=== PATIENT | male | born 1950 | race Caucasian/White ===

== ENCOUNTER 2023-06-04 10:08 | Day surgery (SDC) | payer OTHER, SELFPAY ==
--- NOTE | 2023-06-04 10:10 | W.PREOPHP ---
Assessment and Plan Assessment and plan (1) Nuclear age-related cataract, right eye: Status: Acute Assessment and plan: Assessment: Visually significant cataract of the right eye. Plan: Cataract extraction with lens implantation of the right eye. History of Present Illness History of Present Illness Chief Complaint: Progressive decreased vision, both eyes Narrative: The patient is a 72-year-old male with history of diminished visual acuity in both eyes at both distance and near. He notes difficulty reading fine print and also has significant glare issues at night. On examination he was noted to have bilateral nuclear cataracts with cortical cataract of the left eye as well. The option of cataract surgery was offered to the patient and he felt he was significantly symptomatic that he wished to proceed. Review of Systems All systems reviewed & are unremarkable except as noted in HPI and below PFSH All Active Problems Nuclear age-related cataract, right eye (Acute) Medical History Agent orange exposure SALCEDO (dyspnea on exertion) History of urinary retention HTN (hypertension) Tinnitus Surgical History (Updated 06/04/23 @ 10:53 by Zohra Timmons RN) H/O cervical spine surgery History of throat surgery Social History Smoking/Tobacco Use Status: Former Tobacco Use Quit Date: 10/04/03 Smoking risk assessment performed?: Yes Alcohol Intake: current Alcohol Intake frequency: holidays/special occasions only Drug use: Never Substance use type: does not use Housing: house Do you feel safe at home: Yes Do you feel safe in your relationship?: Yes Meds Allergies and Home Medications Allergies Allergy/AdvReac Type Severity Reaction Status Date / Time No Known Allergies Allergy Unverified 06/04/23 10:32 Home Medications Medication Instructions Recorded Confirmed Type albuterol sulfate 2.5 mg/0.5 mL 2.5 mg inhalation DIRECTED 06/02/23 06/03/23 History solution for nebulization albuterol sulfate 90 mcg/actuation 2 inh inhalation DIRECTED 06/02/23 06/04/23 History breath activated powder inhaler cholecalciferol (vitamin D3) 25 25 mcg PO DAILY 06/02/23 06/04/23 History mcg (1,000 unit) tablet (Vitamin D3) hydrochlorothiazide 12.5 mg tablet 12.5 mg PO DAILY 06/02/23 06/04/23 History lisinopril 20 mg tablet 20 mg PO DAILY 06/02/23 06/04/23 History mometasone-formoterol HFA 200 1 puff inhalation BID 06/02/23 06/04/23 History mcg-5 mcg/actuation aerosol inhaler (Dulera) tamsulosin 0.4 mg capsule 0.8 mg PO DAILY 06/02/23 06/04/23 History tiotropium 2.5 mcg-olodaterol 2.5 2 puff inhalation DAILY 06/02/23 06/04/23 History mcg/actuation mist for inhalation (Stiolto Respimat) carboxymethylcellulose sodium 0.5 1 drp ophthalmic (eye) DAILY 06/04/23 06/04/23 History % eye drops (Refresh Tears) Exam Eyes Other: Most recent ocular examination was significant for corrected visual acuity of 20/50 OD, 20/25 OS. Extraocular Joie is normal. Intraocular pressure is 15 OD, 14 OS. Slit-lamp examination reveals a dense brunescent nuclear cataract of the right eye. A more moderate nuclear cataract with cortical cataract is present in the left eye. Pupils dilate to 4.5 mm OU. Funduscopic examination reveals disc cupping of 0.4 OU with normal vessels, macula, peripheral retina and vitreous. Resp Auscultation: clear to auscultation bilaterally Cardio Rate: regular rate Rhythm: regular rhythm
[2023-06-04 10:36] VITALS: BP 141/75; PULSE 85; RESP 20; TEMP 36.6; O2SAT 91
[2023-06-04] MEDS: Tropicam./Phenyleph. (1/2.5%) 5 ML BTL OD ×3 (10:56→11:08)
--- NOTE | 2023-06-04 10:57 | W.ANESPRE ---
General Info Date of Service Date Performed: 06/04/23 Height: 5 ft 9 in Weight: 107.9 kg Body Mass Index (BMI): 35.1 Surgical Procedure: Operation Date: 06/04/23 12:10 Proposed Procedure Side Surgeon p Cataract Extraction with IOL Implant Right Joe Ritter MD Meds Allergies and Home Medications Allergies Allergy/AdvReac Type Severity Reaction Status Date / Time No Known Allergies Allergy Unverified 06/04/23 10:32 Home Medication Medication Instructions Recorded albuterol sulfate 2.5 mg/0.5 mL 2.5 mg inhalation DIRECTED 06/02/23 solution for nebulization albuterol sulfate 90 mcg/actuation 2 inh inhalation DIRECTED 06/02/23 breath activated powder inhaler cholecalciferol (vitamin D3) 25 25 mcg PO DAILY 06/02/23 mcg (1,000 unit) tablet (Vitamin D3) hydrochlorothiazide 12.5 mg tablet 12.5 mg PO DAILY 06/02/23 lisinopril 20 mg tablet 20 mg PO DAILY 06/02/23 mometasone-formoterol HFA 200 1 puff inhalation BID 06/02/23 mcg-5 mcg/actuation aerosol inhaler (Dulera) tamsulosin 0.4 mg capsule 0.8 mg PO DAILY 06/02/23 tiotropium 2.5 mcg-olodaterol 2.5 2 puff inhalation DAILY 06/02/23 mcg/actuation mist for inhalation (Stiolto Respimat) carboxymethylcellulose sodium 0.5 1 drp ophthalmic (eye) DAILY 06/04/23 % eye drops (Refresh Tears) Current Visit Medications: Current Medications Generic Name Dose Route Start Last Admin Trade Name Freq PRN Reason Stop Dose Admin Acetaminophen 1,000 mg 06/04/23 06:00 Acetaminophen 500 Mg Tab PO 07/04/23 05:59 Q4H PRN PRN Balanced Salt Solution 500 ml 06/04/23 06:00 Balanced Salt Soln.-Plus 500 Ml Bag OP 07/04/23 05:59 DIRECTED TRESSA Miscellaneous Medication 0 ml 06/04/23 06:00 Prednisolone 1%, Moxifloxacin 0.5%, Nepafenac 0.1% 5ml Btl OD 07/04/23 05:59 DIRECTED TRESSA Miscellaneous Medication 0 ml 06/04/23 06:00 06/04/23 10:56 Tropicam./Phenyleph. (1/2.5%) 5 Ml Btl OD 07/04/23 05:59 1 drp DIRECTED TRESSA Administration Tetracaine HCl 0 ml 06/04/23 06:00 Tetracaine 0.5% 4 Ml Btl OD 07/04/23 05:59 DIRECTED TRESSA PFSH Active Problems Active Problems: Problem Status Onset Code Nuclear age-related cataract, right eye H25.11 Medical History Medical History Agent orange exposure SALCEDO (dyspnea on exertion) History of urinary retention HTN (hypertension) Tinnitus Surgical History Surgical History (Updated 06/04/23 @ 10:53 by Zohra Timmons RN) H/O cervical spine surgery History of throat surgery Tobacco Smoking/Tobacco Use Status: Former Tobacco Use Alcohol Alcohol Intake: current Alcohol intake frequency: holidays/special occasions only Substance Use Substance use: Never Substance use type: does not use Vital Signs and Lab Results Vital Signs Most Recent Vital Signs in EMR: Most Recent Vital Signs Temp Pulse Resp BP Pulse Ox 36.6 C 85 20 141/75 H 91 L 06/04/23 10:36 06/04/23 10:36 06/04/23 10:36 06/04/23 10:36 06/04/23 10:36 Lab Results Blood Type / Crossmatch: No Data to Display Complete Blood Count: No Data to Display Complete Metabolic Panel: No Data to Display Liver Function Panel: No Data to Display Coagulation Panel: No Data to Display Cardiac Panel: No Data to Display Arterial Blood Gas: No Data to Display Venous Blood Gas: No Data to Display Pancreas Panel: No Data to Display Thyroid Panel: No Data to Display Infectious Disease: No Data to Display Blood Cultures: No Data to Display Toxicology Panel: No Data to Display Anesthesia Assessment and Plan Anesthesia History Personal History: No History of Anesthesia Complications Family History: No Family History of Anesthesia Complications Exercise Tolerance Exercise Tolerance: Metabolic Equivalents>4 Pertinent Negatives Pertinent Negatives: No Symptoms of GERD Cardiac & Pulmonary Exam Cardiac Exam: Normal S1/S2 Heart Sounds Pulmonary Exam: Clear Bilateral Breath Sounds Implantable Cardiac Device Does patient have a Pacemaker or an ICD?: No Airway Exam Known Difficult Airway: No Mallampati Class: 3 Mouth Opening: Normal (> 3cm) Thyromental Distance: Greater than 3 cm Neck Range of Motion: Full ROM Neck Circumference: Thick Teeth Condition: Normal Dentition ASA Classification ASA Score: ASA 3 Emergency Case?: No NPO Status NPO Status: NPO Clears >2 hours, Solids >8 hours Anesthesia Plan Resuscitation Status: Full Code Anesthesia Technique: MAC Anesthesia Airway Planned: Natural Airway Monitors Used: Standard Monitors
[2023-06-04 10:58] VITALS: BMI 35.1
[2023-06-04] MEDS: Balanced Salt Soln.-PLUS 500 ML BAG OP (11:46)
[2023-06-04] MEDS: Tetracaine 0.5% 4 ML BTL OD (11:47)
[2023-06-04] MEDS: Duovisc Viscoelastic System EACH 1 EACH (11:48)
[2023-06-04] MEDS: Lidocaine 1% Pres-Free 5 ML VIAL (11:48)
[2023-06-04] MEDS: Povidone-Iodine Ophth 30 ML BTL (11:50)
[2023-06-04] MEDS: Phenylephrine/Lidocaine (15/10) MG/ML 1 ML VIAL (11:50)
[2023-06-04] MEDS: Trypan Blue 0.06% 0.5 ML SYR (11:51)
--- NOTE | 2023-06-04 12:17 | W.PM.DSUDISC ---
Date of service: 06/04/23 Time of Service: 12:17 Discharge Plan Disposition Patient Disposition: Home Discharge Details Attending Provider: Joe Ritter Primary Care Provider: [facility] Home Meds and New Rx's Prescriptions: No Action lisinopril 20 mg Tablet 20 mg PO DAILY tamsulosin 0.4 mg Capsule 0.8 mg PO DAILY albuterol sulfate 2.5 mg/0.5 mL Solution For Nebulization 2.5 mg inhalation DIRECTED cholecalciferol (vitamin D3) [Vitamin D3] 25 mcg (1,000 unit) Tablet 25 mcg PO DAILY hydrochlorothiazide 12.5 mg Tablet 12.5 mg PO DAILY Dulera 200-5 mcg/actuation Hfa Aerosol Inhaler 1 puff INHALATION BID albuterol sulfate 90 mcg/actuation Aerosol Powdr Breath Activated 2 inh INHALATION DIRECTED Stiolto Respimat 2.5-2.5 mcg/actuation Mist 2 puff INHALATION DAILY carboxymethylcellulose sodium [Refresh Tears] 0.5 % drops 1 drp ophthalmic (eye) DAILY Rx Instructions: both eyes Discharge Instructions Stand Alone Forms: Post-op Topical Cataract, Joy Estevez (DSU) Discharge Orders Discharge Orders: Discharge Order (Routine); Ordered 06/04/23 Ordered By: Joe Ritter DS: Diagnosis Discharge Diagnosis (1) Nuclear age-related cataract, right eye: Status: Resolved
--- NOTE | 2023-06-04 12:18 | ROE_ITS ---
Date of service: 06/04/23 Time of Service: 12:18 Operative Note Operative Note DATE OF PROCEDURE: 06/04/23 PRE-OP DIAGNOSIS: Nuclear cataract, right eye POST-OP DIAGNOSIS: same PROCEDURE: Cataract extraction using phacoemulsification with intraocular lens implant, right eye SURGEON: Joe Ritter ANESTHESIA TYPE: Local By Surgeon and MAC Refer to Anesthesia Record ESTIMATED BLOOD LOSS: 0 PATHOLOGY: none sent COMPLICATIONS: None Patient was transported to: same day Patient's condition: stable Implants: Braden Clareon [id number] Indications: Progressive decreased vision due to cataract, right eye Procedure Description: CATARACT SURGERY OPERATIVE REPORT PREOPERATIVE DIAGNOSIS: Nuclear cataract, right eye POSTOPERATIVE DIAGNOSIS: Same OPERATION: Cataract extraction using phacoemulsification with posterior chamber intraocular lens implant, right eye. IOL: IOL Ship Erector/Model: Braden Clareon [id number] IOL Power: + 19.5 diopters IOL Serial Number: [id number] Optic Diameter: 6.0mm Haptic/Overall Diameter: 13.0mm PHACO INFO: [facility] Vision System with OZil and Active Fluidics Cumulative Dispersed Energy (CDE): 27.76 seconds SURGEON: Joe Ritter MD, JACOB ANESTHESIA: Monitored Anesthesia Care (MAC), with local sub-tenon's anesthetic infiltration COMPLICATIONS: None SPECIMENS: None INDICATIONS FOR PROCEDURE: The patient is a 73-year-old male with history of diminished visual acuity in his right eye secondary to the development of dense nuclear cataract. He is significantly symptomatic that he desires cataract surgery and attempt to improve and maximize his vision. The option of cataract surgery was offered to the patient and he wished to proceed. See office notes for detailed information. PROCEDURE: The correct surgical eye was identified and marked as the right eye and the pupil was dilated in the preoperative area using mydriatics and cycloplegics. The dilated pupil size was 4.5 mm. The patient elected to proceed without oral sedation. The patient was brought to the operating room where cardiopulmonary monitoring was instituted and surgical time-out was performed, confirming the correct operative eye and IOL power. Topical anesthesia was administered and ophthalmic povidone-iodine 5% was instilled into the conjunctival fornices. The gwyn-ocular area was prepped with Betadine 10% solution and draped in the usual sterile fashion for intraocular surgery, including an aperture drape. A Tegaderm transparent film dressing was cut in half and used to cover the lashes and lid margins. Care was taken to sequester the lashes and lid margins under the Tegaderm dressing. A lid speculum was placed between the lids of the operative eye and the Nighat-Tracie operating microscope was maneuvered into position. Jenna scissors were then used to make a conjunctival buttonhole approximately 6mm posterior to the limbus in the inferonasal quadrant. Blunt dissection was carried out to expose bare sclera, and a blunt-tipped sub-tenon?s anesthesia cannula was introduced and passed posteriorly along the globe where non- preserved plain lidocaine was injected into posterior sub-Tenon?s space. A sideport knife was used to make a paracentesis port. VisionBlue was injected into the anterior chamber and allowed to sit for 20 seconds. Intraocular phenylephrine/lidocaine was injected into the anterior chamber. The anterior chamber was then filled with viscoelastic. A keratome knife was used to construct a two--plane clear corneal tunnel extending 2.0mm into clear cornea. A flap was raised on the anterior capsule and capsulorhexis forceps were used to complete a continuous curvilinear capsulorhexis of 5.0 mm. Balanced salt solution was then used to perform cortical cleaving hydrodissection and nuclear hydrodelineation until the lens could be freely rotated within the capsular bag. The lens nucleus was then disassembled and removed within the capsular bag and iris plane using phacoemulsification. Residual cortical material was removed using the I/A handpiece. The posterior capsule was carefully polished to remove as much residual lens epithelial cells as safely possible. The capsular bag was then inflated and the anterior chamber deepened with cohesive viscoelastic. The lens implant described above was inserted into the capsular bag using the Braden Autonome Injector. A Kuglen hook was used to dial the IOL into position. Residual viscoelastic was then removed first from posterior to the IOL, then from the anterior chamber using the I/A handpiece. The lens implant was noted to center nicely within the capsular bag. The incisions were stromally hydrated, and the anterior chamber was reformed using BSS. Then 0.5cc of moxifloxacin 1.0mg/ml were injected into the capsular bag and anterior chamber. The incisions were checked with a Weck spear and found to be secure. Several drops of ophthalmic povidone-iodine 5% were then applied to the eye followed by two drops of Imprimis combination prednisolone/moxifloxacin/nepafenac solution. The drapes were removed and a clear plastic protective eye shield was placed over the eye. The patient was then returned to Same Day Surgery in stable condition.
[2023-06-04 12:19] VITALS: BP 140/81; PULSE 76; RESP 20; TEMP 37.1; O2SAT 90
--- NOTE | 2023-06-04 12:19 | W.ANESPOSTOP ---
Postoperative Evaluation Date, Time and Location Date Performed: 06/04/23 Time Performed: 12:20 Patient Location: Day Surgery Unit Vital Signs Most Recent Imported Vital Signs: Most Recent Vital Signs Temp Pulse Resp BP Pulse Ox 36.6 C 85 20 141/75 H 91 L 06/04/23 10:36 06/04/23 10:36 06/04/23 10:36 06/04/23 10:36 06/04/23 10:36 Pain Score Most Recent Pain Score: Most Recent Pain Score Pain Level 0 06/04/23 10:36 Assessment Mental Status: Awake (Alert & Oriented to Patient Baseline) Airway and Respiratory Function: Patent airway with normal (patient baseline) respiratory exam Cardiovascular Function: Hemodynamically Stable Hydration Status: Adequately Hydrated Nausea & Vomiting: No Nausea or Vomiting Pain: Pt. Denies Any Pain Peripheral Nerve Block: Patient did not receive a nerve block
== END 2023-06-04 12:40 | disposition home or self-care (01) ==
LOC: SUR 10:10
PROVIDERS: Visit Provider Ophthalmology
PROC: (CPT 66984; principal; 2023-06-04 12:00)
DX: H25.11 Age-related nuclear cataract, right eye (principal); I10 Essential (primary) hypertension
CPT/HCPCS: 66984; V2632

== ENCOUNTER 2023-06-18 06:11 | Day surgery (SDC) | payer OTHER, SELFPAY ==
--- NOTE | 2023-06-16 19:24 | W.PREOPHP ---
Assessment and Plan Assessment and plan (1) Nuclear age-related cataract, left eye: Status: Acute Assessment and plan: Assessment: Visually significant cataract, left eye. Plan: Cataract extraction with lens implantation, left eye (2) Cortical age-related cataract, left eye: Status: Acute Assessment and plan: Assessment: Visually significant cataract, left eye. Plan: Cataract extraction with lens implantation, left eye History of Present Illness History of Present Illness Chief Complaint: Progressive decreased vision, left eye Narrative: The patient is a 73-year-old male who originally presented with complaints of progressive decreased vision in both eyes at both distance and near. He noted significant decreased vision and severe glare symptoms at night. On examination he was noted to have bilateral cataracts. He underwent cataract surgery in the right eye on 06/04/2023. Postoperatively he is doing well with uncorrected visual acuity of 20/20 in the right eye. He now presents for cataract surgery in the left eye. PFSH All Active Problems Cortical age-related cataract, left eye (Acute) Nuclear age-related cataract, left eye (Acute) Medical History Agent orange exposure SALCEDO (dyspnea on exertion) History of urinary retention HTN (hypertension) Tinnitus Surgical History H/O cervical spine surgery History of throat surgery Social History Smoking/Tobacco Use Status: Former Tobacco Use Quit Date: 10/04/03 Smoking risk assessment performed?: Yes Alcohol Intake: current Alcohol Intake frequency: holidays/special occasions only Drug use: Never Substance use type: does not use Housing: house Do you feel safe at home: Yes Do you feel safe in your relationship?: Yes Meds Allergies and Home Medications Allergies Allergy/AdvReac Type Severity Reaction Status Date / Time No Known Allergies Allergy Verified 06/18/23 06:28 Home Medications Medication Instructions Recorded Confirmed Type albuterol sulfate 2.5 mg/0.5 mL 2.5 mg inhalation DIRECTED 06/02/23 06/16/23 History solution for nebulization albuterol sulfate 90 mcg/actuation 2 inh inhalation DIRECTED 06/02/23 06/18/23 History breath activated powder inhaler cholecalciferol (vitamin D3) 25 25 mcg PO DAILY 06/02/23 06/18/23 History mcg (1,000 unit) tablet (Vitamin D3) hydrochlorothiazide 12.5 mg tablet 12.5 mg PO DAILY 06/02/23 06/18/23 History lisinopril 20 mg tablet 20 mg PO DAILY 06/02/23 06/18/23 History mometasone-formoterol HFA 200 1 puff inhalation BID 06/02/23 06/18/23 History mcg-5 mcg/actuation aerosol inhaler (Dulera) tamsulosin 0.4 mg capsule 0.8 mg PO DAILY 06/02/23 06/18/23 History tiotropium 2.5 mcg-olodaterol 2.5 2 puff inhalation DAILY 06/02/23 06/18/23 History mcg/actuation mist for inhalation (Stiolto Respimat) carboxymethylcellulose sodium 0.5 1 drp ophthalmic (eye) DAILY 06/04/23 06/18/23 History % eye drops (Refresh Tears) Exam Eyes Other: Most recent ocular examination is significant for uncorrected visual acuity of 20/20 in the right eye. Corrected visual acuity is 20/25 in the left eye. Intraocular pressure is 15 OD, 14 OS. Extraocular motility is normal. Slit-lamp examination is significant for a well-positioned PCIOL OD with clear posterior capsule. In the left eye moderate nuclear and cortical cataracts are present OU. Funduscopic examination reveals disc cupping of 0.4 OU with normal vessels, macula, peripheral retina and vitreous. Resp Auscultation: clear to auscultation bilaterally Cardio Rate: regular rate Rhythm: regular rhythm
--- NOTE | 2023-06-18 06:13 | ANES.PREOP_ITS ---
General Info Date of Service Date Performed: 06/18/23 Height: 5 ft 9 in Weight: 107.9 kg Body Mass Index (BMI): 35.1 Surgical Procedure: Operation Date: 06/18/23 07:40 Proposed Procedure Side Surgeon p Cataract Extraction with IOL Implant Left Joe Ritter MD Meds Allergies and Home Medications Allergies Allergy/AdvReac Type Severity Reaction Status Date / Time No Known Allergies Allergy Verified 06/18/23 06:28 Home Medication Medication Instructions Recorded albuterol sulfate 2.5 mg/0.5 mL 2.5 mg inhalation DIRECTED 06/02/23 solution for nebulization albuterol sulfate 90 mcg/actuation 2 inh inhalation DIRECTED 06/02/23 breath activated powder inhaler cholecalciferol (vitamin D3) 25 25 mcg PO DAILY 06/02/23 mcg (1,000 unit) tablet (Vitamin D3) hydrochlorothiazide 12.5 mg tablet 12.5 mg PO DAILY 06/02/23 lisinopril 20 mg tablet 20 mg PO DAILY 06/02/23 mometasone-formoterol HFA 200 1 puff inhalation BID 06/02/23 mcg-5 mcg/actuation aerosol inhaler (Dulera) tamsulosin 0.4 mg capsule 0.8 mg PO DAILY 06/02/23 tiotropium 2.5 mcg-olodaterol 2.5 2 puff inhalation DAILY 06/02/23 mcg/actuation mist for inhalation (Stiolto Respimat) carboxymethylcellulose sodium 0.5 1 drp ophthalmic (eye) DAILY 06/04/23 % eye drops (Refresh Tears) Current Visit Medications: Current Medications Generic Name Dose Route Start Last Admin Trade Name Freq PRN Reason Stop Dose Admin Acetaminophen 1,000 mg 06/18/23 06:00 Acetaminophen 500 Mg Tab PO 07/18/23 05:59 Q4H PRN PRN Balanced Salt Solution 500 ml 06/18/23 06:00 Balanced Salt Soln.-Plus 500 Ml Bag OP 07/18/23 05:59 DIRECTED TRESSA Miscellaneous Medication 0 ml 06/18/23 06:00 Prednisolone 1%, Moxifloxacin 0.5%, Nepafenac 0.1% 5ml Btl OS 07/18/23 05:59 DIRECTED TRESSA Miscellaneous Medication 0 ml 06/18/23 06:00 Tropicam./Phenyleph. (1/2.5%) 5 Ml Btl OS 07/18/23 05:59 DIRECTED [facility] Tetracaine HCl 0 ml 06/18/23 06:00 Tetracaine 0.5% 4 Ml Btl OS 07/18/23 05:59 DIRECTED [facility] PFSH Active Problems Active Problems: Problem Status Onset Code Cortical age-related cataract, left eye H25.012 Nuclear age-related cataract, left eye H25.12 Nuclear age-related cataract, right eye H25.11 Medical History Medical History Agent orange exposure SALCEDO (dyspnea on exertion) History of urinary retention HTN (hypertension) Tinnitus Surgical History Surgical History H/O cervical spine surgery History of throat surgery Tobacco Smoking/Tobacco Use Status: Former Tobacco Use Alcohol Alcohol Intake: current Alcohol intake frequency: holidays/special occasions only Substance Use Substance use: Never Substance use type: does not use Vital Signs and Lab Results Vital Signs Most Recent Vital Signs in EMR: Temp Pulse Resp BP Pulse Ox 36.0 C L 94 H 18 139/77 91 L 06/18/23 06:33 06/18/23 06:33 06/18/23 06:33 06/18/23 06:33 06/18/23 06:33 Lab Results Blood Type / Crossmatch: No Data to Display Complete Blood Count: No Data to Display Complete Metabolic Panel: No Data to Display Liver Function Panel: No Data to Display Coagulation Panel: No Data to Display Cardiac Panel: No Data to Display Arterial Blood Gas: No Data to Display Venous Blood Gas: No Data to Display Pancreas Panel: No Data to Display Thyroid Panel: No Data to Display Infectious Disease: No Data to Display Blood Cultures: No Data to Display Toxicology Panel: No Data to Display Anesthesia Assessment and Plan Anesthesia History Personal History: No History of Anesthesia Complications Family History: No Family History of Anesthesia Complications Exercise Tolerance Exercise Tolerance: Metabolic Equivalents>4 Cardiac & Pulmonary Exam Cardiac Exam: Normal S1/S2 Heart Sounds Pulmonary Exam: Clear Bilateral Breath Sounds Implantable Cardiac Device Does patient have a Pacemaker or an ICD?: No Airway Exam Known Difficult Airway: No Mallampati Class: 3 Mouth Opening: Normal (> 3cm) Thyromental Distance: Greater than 3 cm Neck Range of Motion: Full ROM Neck Circumference: Thick Teeth Condition: Normal Dentition ASA Classification ASA Score: ASA 2 Emergency Case?: No NPO Status NPO Status: NPO Clears >2 hours, Solids >8 hours Anesthesia Plan Resuscitation Status: Full Code Anesthesia Technique: MAC Anesthesia Airway Planned: Natural Airway Monitors Used: Standard Monitors Preoperative Comments:: 73 yo male for cataract removal. previous without MKO, no issues.
[2023-06-18 06:33] VITALS: BP 139/77; PULSE 94; RESP 18; TEMP 36; O2SAT 91
[2023-06-18] MEDS: Tropicam./Phenyleph. (1/2.5%) 5 ML BTL OS ×3 (06:43→06:53)
[2023-06-18 06:53] VITALS: BMI 35.1
[2023-06-18] MEDS: Povidone-Iodine Ophth 30 ML BTL (07:30)
[2023-06-18] MEDS: Tetracaine 0.5% 4 ML BTL OS (07:30)
[2023-06-18] MEDS: Balanced Salt Soln.-PLUS 500 ML BAG OP (07:36)
[2023-06-18] MEDS: Duovisc Viscoelastic System EACH 1 EACH (07:36)
[2023-06-18] MEDS: Lidocaine 1% Pres-Free 5 ML VIAL (07:36)
[2023-06-18] MEDS: Trypan Blue 0.06% 0.5 ML SYR (07:38)
[2023-06-18] MEDS: Phenylephrine/Lidocaine (15/10) MG/ML 1 ML VIAL (07:38)
[2023-06-18 07:58] VITALS: BP 130/76; PULSE 78; RESP 17; TEMP 36.4; O2SAT 95
--- NOTE | 2023-06-18 07:59 | PDOC.DSDIS_ITS ---
Date of service: 06/18/23 Time of Service: 07:59 Discharge Plan Disposition Patient Disposition: Home Discharge Details Attending Provider: Joe Ritter Primary Care Provider: [facility] Home Meds and New Rx's Prescriptions: No Action lisinopril 20 mg Tablet 20 mg PO DAILY tamsulosin 0.4 mg Capsule 0.8 mg PO DAILY albuterol sulfate 2.5 mg/0.5 mL Solution For Nebulization 2.5 mg inhalation DIRECTED cholecalciferol (vitamin D3) [Vitamin D3] 25 mcg (1,000 unit) Tablet 25 mcg PO DAILY hydrochlorothiazide 12.5 mg Tablet 12.5 mg PO DAILY Dulera 200-5 mcg/actuation Hfa Aerosol Inhaler 1 puff INHALATION BID albuterol sulfate 90 mcg/actuation Aerosol Powdr Breath Activated 2 inh INHALATION DIRECTED Stiolto Respimat 2.5-2.5 mcg/actuation Mist 2 puff INHALATION DAILY carboxymethylcellulose sodium [Refresh Tears] 0.5 % drops 1 drp ophthalmic (eye) DAILY Rx Instructions: both eyes Discharge Instructions Stand Alone Forms: Post-op Topical Cataract, Joy Estevez (DSU) Discharge Orders Discharge Orders: Discharge Order (Routine); Ordered 06/18/23 Ordered By: Joe Ritter DS: Diagnosis Discharge Diagnosis (1) Nuclear age-related cataract, left eye: Status: Resolved (2) Cortical age-related cataract, left eye: Status: Resolved
--- NOTE | 2023-06-18 08:00 | ROE_ITS ---
Date of service: 06/18/23 Time of Service: 08:00 Operative Note Operative Note DATE OF PROCEDURE: 06/18/23 PRE-OP DIAGNOSIS: Nuclear/cortical cataract, left eye Poorly dilating pupil, left eye POST-OP DIAGNOSIS: same PROCEDURE: Cataract extraction using phacoemulsification with intraocular lens implant, left eye Pupillary dilation and iris stabilization with 7.0 mm pupillary expansion device SURGEON: Joe Ritter ANESTHESIA TYPE: Local By Surgeon and MAC Refer to Anesthesia Record PATHOLOGY: none sent COMPLICATIONS: None Patient was transported to: same day Patient's condition: stable Implants: Braden Clareon [id number] Indications: Progressive decreased vision due to cataract, left eye Procedure Description: CATARACT SURGERY OPERATIVE REPORT PREOPERATIVE DIAGNOSIS: Nuclear/cortical cataract, left eye Poorly dilating pupil, left eye POSTOPERATIVE DIAGNOSIS: Same OPERATION: Cataract extraction using phacoemulsification with posterior chamber intraocular lens implant, left eye. Pupillary dilation and iris stabilization with 7.0 mm pupillary expansion device IOL: IOL Data Support Specialist/Model: Braden Clareon [id number] IOL Power: + 19.0 diopters IOL Serial Number: [id number] Optic Diameter: 6.0mm Haptic/Overall Diameter: 13.0mm PHACO INFO: Braden [employer] GROUP[employer]ion Vision System with OZil and Active Fluidics Cumulative Dispersed Energy (CDE): 8.84 seconds SURGEON: Joe Ritter MD, JACOB ANESTHESIA: Monitored Anesthesia Care (MAC), with local sub-tenon's anesthetic infiltration COMPLICATIONS: None SPECIMENS: None INDICATIONS FOR PROCEDURE: The patient is a 73-year-old male with history of diminished visual acuity in both eyes secondary to the development of significant bilateral cataract. He has already undergone cataract surgery in the right eye and is doing well postoperatively. He now presents for cataract surgery in the left eye. See office notes for detailed information. PROCEDURE: The correct surgical eye was identified and marked as the left eye and the pupil was dilated in the preoperative area using mydriatics and cycloplegics. The dilated pupil size was 4.0 mm. . The patient elected to proceed without oral sedation. The patient was brought to the operating room where cardiopulmonary monitoring was instituted and surgical time-out was performed, confirming the correct operative eye and IOL power. Topical anesthesia was administered and ophthalmic povidone-iodine 5% was instilled into the conjunctival fornices. The gwyn-ocular area was prepped with Betadine 10% solution and draped in the usual sterile fashion for intraocular surgery, including an aperture drape. A Tegaderm transparent film dressing was cut in half and used to cover the lashes and lid margins. Care was taken to sequester the lashes and lid margins under the Tegaderm dressing. A lid speculum was placed between the lids of the operative eye and the Braden LuxOR Revalia operating microscope was maneuvered into position. Jenna scissors were then used to make a conjunctival buttonhole approximately 6mm posterior to the limbus in the inferonasal quadrant. Blunt dissection was carried out to expose bare sclera, and a blunt-tipped sub-tenon?s anesthesia cannula was introduced and passed posteriorly along the globe where non- preserved plain lidocaine was injected into posterior sub-Tenon?s space. A sideport knife was used to make a paracentesis port. Intraocular phenylephrine/lidocaine was injected into the anterior chamber. The anterior chamber was then filled with viscoelastic. A keratome knife was used construct a two-plane clear corneal tunnel extending 2.0mm into clear cornea. A 7.0 mm Malyugin Ring pupillary expansion device was inserted into the pupillary space and engaged with the Kuglen hook. A flap was raised on the anterior capsule and capsulorhexis forceps were used to complete a continuous curvilinear capsulorhexis of 5.0 mm. Balanced salt solution was then used to perform cortical cleaving hydrodissection and nuclear hydrodelineation until the lens could be freely rotated within the capsular bag. The lens nucleus was then disassembled and removed within the capsular bag and iris plane using phacoemulsification. Residual cortical material was removed using the irrigation/aspiration handpiece. The posterior capsule was carefully polished to remove as much residual lens epithelial cells as safely possible. The capsular bag was then inflated and the anterior chamber deepened with viscoelastic. The lens implant described above was inserted into the capsular bag using the Braden Autonome Injector. A Kuglen hook was used to dial the IOL into position. The pupillary expansion device was then removed in the reverse order of its insertion. Residual viscoelastic was then removed first from posterior to the IOL, then from the anterior chamber using the I/A handpiece. The lens implant was noted to center nicely within the capsular bag. The incisions were stromally hydrated, and the anterior chamber was reformed using BSS. Then 0.5cc of moxifloxacin 1.0mg/ml were injected into the capsular bag and anterior chamber. The incisions were checked with a Weck spear and found to be secure. Several drops of ophthalmic povidone-iodine 5% were then applied to the eye followed by two drops of Imprimis combination prednisolone/moxifloxacin/nepafenac solution. The drapes were removed and a clear plastic protective eye shield was placed over the eye. The patient was then returned to Same Day Surgery in stable condition.
--- NOTE | 2023-06-18 08:33 | W.ANESPOSTOP ---
Postoperative Evaluation Date, Time and Location Date Performed: 06/18/23 Time Performed: 07:58 Patient Location: Day Surgery Unit Vital Signs Most Recent Imported Vital Signs: Most Recent Vital Signs Temp Pulse Resp BP Pulse Ox 36.4 C L 78 17 130/76 95 06/18/23 07:58 06/18/23 07:58 06/18/23 07:58 06/18/23 07:58 06/18/23 07:58 Pain Score Most Recent Pain Score: Most Recent Pain Score Pain Level 0 06/18/23 07:58 Assessment Mental Status: Awake (Alert & Oriented to Patient Baseline) Airway and Respiratory Function: Patent airway with normal (patient baseline) respiratory exam Cardiovascular Function: Hemodynamically Stable Hydration Status: Adequately Hydrated Nausea & Vomiting: No Nausea or Vomiting Pain: Pt. Denies Any Pain Peripheral Nerve Block: Patient did not receive a nerve block
== END 2023-06-18 08:14 | disposition home or self-care (01) ==
LOC: SUR 06:11
PROVIDERS: Visit Provider Ophthalmology
PROC: (CPT 66982; principal; 2023-06-18 07:30)
DX: H25.12 Age-related nuclear cataract, left eye (principal); H25.012 Cortical age-related cataract, left eye; I10 Essential (primary) hypertension; Z98.41 Cataract extraction status, right eye
CPT/HCPCS: 66982; V2632